=== PATIENT | female | born 1970 | race Caucasian/White ===

== ENCOUNTER → 2023-06-22 06:33 | Day surgery (SDC) | payer BC, SELFPAY | LOC: GI 06:33 | PROVIDERS: ATTENDING PHYSICIAN Internal Medicine | DX: Z12.11 Encounter for screening for malignant neoplasm of colon (principal); D12.0 Benign neoplasm of cecum; D12.5 Benign neoplasm of sigmoid colon; K63.5 Polyp of colon; K56.2 Volvulus; Z86.010 Personal history of colon polyps | CPT/HCPCS: 45380; 88305 ==

== ENCOUNTER → 2024-01-03 12:44 | Outpatient (REF) | payer BC, SELFPAY | LOC: WDC 12:44 | PROVIDERS: ATTENDING PHYSICIAN Obstetrics & Gynecology; FAMILY PHYSICIAN Family Medicine | DX: Z12.31 Encounter for screening mammogram for malignant neoplasm of breast (principal) | CPT/HCPCS: 77063; 77067 ==

== ENCOUNTER → 2025-01-08 12:30 | Outpatient (REF) | payer BC, SELFPAY | LOC: WDC 12:30 | PROVIDERS: ATTENDING PHYSICIAN Obstetrics & Gynecology; FAMILY PHYSICIAN Family Medicine | DX: Z12.31 Encounter for screening mammogram for malignant neoplasm of breast (principal) | CPT/HCPCS: 77063; 77067 ==

== ENCOUNTER 2025-01-27 11:37 | Emergency (ER) | payer BC, SELFPAY ==
[2025-01-27] VITALS (7 sets, daily range): BP systolic 104–124; BP diastolic 69–89; BMI 26.4
--- NOTE | 2025-01-27 12:12 | EDRN ---
Pt had surgery (lower back, fusion in lumbar area) done by [facility] at [place] [facility] on Dec 11. Pt states she had a lot of pain initially then pain eased up. Pt states that pain came back (also newly radiating up her back) and she cannot get
comfortable w/ pain meds not working. Pt is on oxycodone 5 mg 1-2 talets prn, toradol 10 mg prn, gabapentin 300 mg bid, tizandine 2 mg Bid for her pain and started on medrol dose pack on Monday. Pt states she was advised to come to ER r/t to no pain
relief.
--- NOTE | 2025-01-27 12:28 | EDRN ---
Juan David Navarro NP in room w/ pt.
[2025-01-27] MEDS: DILAUDID 0.5 MG IV ×3 (13:09→20:14)
[2025-01-27] MEDS: NSS 1000 IV (13:09)
[2025-01-27 13:30] LABS: Hematocrit 37.0 % (37.0-47.0); Hemoglobin 12.6 g/dL (12.0-16.0); Mean Corp Hgb Conc. 34.1 g/dL (33.0-37.0); Mean Corpuscular Volume 84.3 fL (81.0-99.0); Nucleated Red Blood Cells % 0 %; Platelet Count 297 10^3/uL (130-400); Red Cell Dist. Width 12.6 % (11.5-14.5)
[2025-01-27 13:39] LABS: ALT (SGPT) 104 U/L (0-35); AST (SGOT) 62 U/L (14-36); Albumin 4.5 g/dl (3.5-5.0); Alkaline Phosphatase 61 U/L (38-126); Blood Urea Nitrogen 16 mg/dl (7-17); Calcium 9.5 mg/dl (8.4-10.2); Carbon Dioxide 29 mmol/L (22-30); Chloride 104 mmol/L (98-107); Estimated Creatinine Clearance 81 ml/min; Glucose 123 mg/dl (70-99); Potassium 4.9 mmol/L (3.5-5.1); Sodium 138 mmol/L (135-145); Total Protein 7.0 g/dl (6.3-8.2); eGFR > 60.00
[2025-01-27 13:45] LABS: D-Dimer 0.49 ug/mlFEU (0.00-0.50)
--- NOTE | 2025-01-27 13:58 | ED.GENMED ---
History of Present Illness
<Ishan Solomon MD - Last Filed: 01/28/25 19:16>
General
Chief Complaint: Back Pain
Source: patient
Time Seen by Provider: 01/27/25 12:18
Nursing documentation reviewed up to this point in time: agreed with
<MICHEL Sharp - Last Filed: 01/27/25 19:47>
General
Exam Limitations: none
History of Present Illness
History of Present Illness:
Patient is a 54-year-old female who presents to the ER for evaluation. Patient had a laminectomy/fusion December [address] Wright at [facility]. She was hospitalized and there orthopedic [facility] in [place]. She started physical therapy the end of
December and is currently in physical therapy. For the past week however she has had pain in the mid part of her back. It feels very achy but constantly there. She did speak with them and has had no relief with her present oxycodone and gabapentin
and tizanidine she spoke to the physician clinical lab assistant at [facility] orthopedics on Monday 3 days ago and was given a prescription for Toradol still without relief. She spoke to the on-call doctor on Monday and was given steroid prescription and still
continues to have she denies any fever or chills. Pain is not worse with movement or position change it is just there. At times she does feel like it wraps around her front she feels mildly short of breath.
Past History
<Ishan Solomon MD - Last Filed: 01/28/25 19:16>
Past History
ED Past Medical History: Other (Chronic UTIs, breast implant rupture in 2018 with bilateral breast implant replacement on 03/02/18)
ED Past Surgical History: Gynecological, Orthopedic and Other (Breast implants in 2000 with rupture of implant in 2018 and subsequent replacement of bilateral breast implants with silicone on 03/02/18)
Social History
Tobacco: Non-smoker
Alcohol: Occasional
Drug: None
Personal:
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
Family History
Family History: Other (n/c)
Phy Exam
<MICHEL Sharp - Last Filed: 01/27/25 19:47>
General Physical Exam
General Presentation: no apparent distress
General age: appears stated age
General Skin: warm and dry
General Mental: alert
General Hydration: appears well hydrated
Cardiovascular Exam
Cardiovascular Exam: regular rate/rhythm, no murmur and normal peripheral pulses
Pulmonary Exam
Pulmonary Exam: lungs clear and no respiratory distress
Gastrointestinal Exam
Gastrointestinal Exam: non tender and soft
Neurological Exam
Neurological Exam: alert
Musculoskeletal Exam
Musculoskeletal Exam: full ROM and other (Healing lower lumbar scars without any evidence infection; no upper tenderness normal inspection to back )
Skin Exam
Skin Exam: normal color and warm/dry
Psychiatric Exam
Psychiatric Exam: normal mood/affect
Course
<Ishan Solomon MD - Last Filed: 01/28/25 19:16>
Orders/Labs/Results
Orders:
Orders
01/27/25 12:40
IV Insert/Care/Rem.- Treatment PRN
0.9% Sodium Chloride 1000 ml [Nss] 1,000 ml IV BOLUS
HYDROmorphone [Dilaudid] 0.5 mg IV NOW STA
01/27/25 13:13
C-Reactive Protein Urgent
Comment: ADD ON
Complete Blood Count/With Diff Urgent
Comprehensive Metabolic Panel Urgent
DDimer [D-Dimer] Urgent
Erythrocyte Sed Rate Urgent
Comment: ADD ON
01/27/25 15:01
HYDROmorphone [Dilaudid] 0.5 mg IV NOW STA
01/27/25 15:20
Add On- LAB Urgent
Tests Added?: crp and sed rate
01/27/25 15:45
MR Lumbar W/o & With Contrast Urgent
Reason For Exam: increased pain s/p surgery
OK for patient to be off Cardiac Monitoring for MRI: Yes
Recent pill cam endoscopy?: No
Pacemaker/Defibrillator?: No
Brain Aneurysm Clips?: No
Have you ever worked with metal? grinding metal? welding?: No
Cochlear(ear) implants?: No
Does Pt have a Temp Sensing Cath?: No
Does the patient have IV access?: Yes
Does the patient have any stents?: No
MR Thoracic Spine W/o & With Urgent
Reason For Exam: increased pain s/p surg r/o abscess
OK for patient to be off Cardiac Monitoring for MRI: Yes
Recent pill cam endoscopy?: No
01/27/25 16:16
Lorazepam [Ativan] 1 mg IV NOW STA
01/27/25 16:28
Lorazepam [Ativan] 1 mg IV NOW STA
01/27/25 19:52
HYDROmorphone [Dilaudid] 0.5 mg IV NOW STA
Abnormal Lab Results
01/27/25
13:13
Absolute Lymphs (auto) 0.7 L 10^3/uL
(1.2-3.4)
Neutrophils % 88.1 H %
(42.2-75.2)
Lymphocytes % 10.2 L %
(20.5-51.1)
Monocytes % 1.3 L %
(1.7-9.3)
Glucose 123 H mg/dl
(70-99)
AST 62 H U/L
(14-36)
ALT 104 H U/L
(0-35)
01/27/25 13:13
01/27/25 13:13
Vital Signs
Initial and Last Documented VS:
Initial Vital Signs
Temp Pulse Resp BP Pulse Ox
98.4 F 76 18 104/79 100
01/27/25 11:41 01/27/25 11:41 01/27/25 11:41 01/27/25 11:41 01/27/25 11:41
Last Documented Vital Signs
Temp Pulse Resp BP Pulse Ox
98.4 F 86 16 112/73 96
01/27/25 11:41 01/27/25 18:10 01/27/25 18:10 01/27/25 18:10 01/27/25 18:10
<MICHEL Sharp - Last Filed: 01/27/25 19:47>
Orders/Labs/Results
Orders:
Orders
01/27/25 12:40
IV Insert/Care/Rem.- Treatment PRN
0.9% Sodium Chloride 1000 ml [Nss] 1,000 ml IV BOLUS
HYDROmorphone [Dilaudid] 0.5 mg IV NOW STA
01/27/25 13:13
C-Reactive Protein Urgent
Comment: ADD ON
Complete Blood Count/With Diff Urgent
Comprehensive Metabolic Panel Urgent
DDimer [D-Dimer] Urgent
Erythrocyte Sed Rate Urgent
Comment: ADD ON
01/27/25 15:01
HYDROmorphone [Dilaudid] 0.5 mg IV NOW STA
01/27/25 15:20
Add On- LAB Urgent
Tests Added?: crp and sed rate
01/27/25 15:45
MR Lumbar W/o & With Contrast Urgent
Reason For Exam: increased pain s/p surgery
OK for patient to be off Cardiac Monitoring for MRI: Yes
Recent pill cam endoscopy?: No
Pacemaker/Defibrillator?: No
Brain Aneurysm Clips?: No
Have you ever worked with metal? grinding metal? welding?: No
Cochlear(ear) implants?: No
Does Pt have a Temp Sensing Cath?: No
Does the patient have IV access?: Yes
Does the patient have any stents?: No
MR Thoracic Spine W/o & With Urgent
Reason For Exam: increased pain s/p surg r/o abscess
OK for patient to be off Cardiac Monitoring for MRI: Yes
Recent pill cam endoscopy?: No
01/27/25 16:16
Lorazepam [Ativan] 1 mg IV NOW STA
01/27/25 16:28
Lorazepam [Ativan] 1 mg IV NOW STA
01/27/25 19:52
HYDROmorphone [Dilaudid] 0.5 mg IV NOW STA
Abnormal Lab Results
01/27/25
13:13
Absolute Lymphs (auto) 0.7 L 10^3/uL
(1.2-3.4)
Neutrophils % 88.1 H %
(42.2-75.2)
Lymphocytes % 10.2 L %
(20.5-51.1)
Monocytes % 1.3 L %
(1.7-9.3)
Glucose 123 H mg/dl
(70-99)
AST 62 H U/L
(14-36)
ALT 104 H U/L
(0-35)
01/27/25 13:13
01/27/25 13:13
Vital Signs
Initial and Last Documented VS:
Initial Vital Signs
Temp Pulse Resp BP Pulse Ox
98.4 F 76 18 104/79 100
01/27/25 11:41 01/27/25 11:41 01/27/25 11:41 01/27/25 11:41 01/27/25 11:41
Last Documented Vital Signs
Temp Pulse Resp BP Pulse Ox
98.4 F 86 16 112/73 96
01/27/25 11:41 01/27/25 18:10 01/27/25 18:10 01/27/25 18:10 01/27/25 18:10
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
Stone Mill Operator consulted with physician?: Yes
Name of Physician Consulted: Juanito
<MICHEL Sharp - Last Filed: 01/27/25 19:47>
MDM/Problems Addressed
Differential Diagnosis Includes:
Not limited to postsurgical pain less likely PE ,less likely abscess
MDM/Problems Addressed:
As documented patient is a 54-year-old female who presents to the ER for evaluation of back pain. She had laminectomy in the lumbar region by [facility] Dr. Colton Wright as documented in December. Recently she has had increasing pain and has
been very close contact with them. She is on pain medication including steroids without relief. Today however she presented for pain mostly in the thoracic region questional slight shortness of breath. Because of recent surgery PE workup was done
and negative D-dimer patient is not tachycardic not hypoxic in no acute distress with no shortness of breath. With negative D-dimer and persistent pain MRI of lumbar and thoracic region was done. Lumbar MRI reviewed shows a 2.6 cm rim-enhancing
fluid collection at the site of the left for hemilaminectomy diagnostic possibilities are postoperative seroma or abscess. Patient however with no fever normal white count normal sed rate normal CRP not consistent with abscess.
Called placed to DR Colton Wright ([facility] spine surgeon. I did review findings on CAT scan as well as labs. He is comfortable with following this patient as an outpatient and feels that these findings are likely consistent postsurgical findings
including likely seroma.
In addition patient's LFTs are very minimally elevated I did review with patient importance of close outpatient follow-up for recheck. She has no complaints abdominal pain/nausea abdomen soft nontender.
<Ishan Solomon MD - Last Filed: 01/28/25 19:16>
*Pulse Oximetry
SaO2: 100
Oxygen Mode of Delivery: Room air
<MICHEL Sharp - Last Filed: 01/27/25 19:47>
*Radiology
Radiology exam reviewed: radiology read reviewed
*Pulse Oximetry
Patient hypoxic: no
*Critical Care Note
Total Time (30-74mins, 75-104mins- exclusive of procedures): Not Applicable
Data Reviewed
Review of Other/Old Records Reveals: Radiology Studies
Source: patient
<MICHEL Sharp - Last Filed: 01/27/25 19:47>
Patient Management
Discussion with other providers: Dependency Program Director (orthopedic Dr Colton Wright )
ED Attending Note
<Ishan Solomon MD - Last Filed: 01/28/25 19:16>
ED Attending Note
Patient seen and examined by attending physician: Yes
ED Attending Note:
Patient status post lower back surgery at [facility] last month secondary to lumbar stenosis, not responding to outpatient treatment, presents to ED secondary to persistent mid back pain over the past 5 days. Patient denies fever or chills.
Denies new trauma. Denies open wound. Denies nausea or vomiting. Denies loss of sensation or weakness. Patient has spoken with her surgeon, who prescribed Toradol 3 days ago, and prednisone last night, without improvement symptoms. Denies
previous history of similar symptoms. Denies shortness of breath. Denies back pain. Denies abdominal pain. Denies loss of appetite.
Physical Exam
General: mild painful distress, not acutely ill. afebrile
Head: nc/at. eomi
Neck: supple. no meningeal signs.
Heart: s1/s2 regular rate and rhythm
Lungs: no acute respiratory distress. clear bilaterally. chest wall nontender to palpation
Abdomen: normal bowel sounds. not tender.
Back: no midline tenderness. no erythema/swelling. well healed surgical scar noted over lower back at level of L5-S1
Neuro: alert and oriented x 3. no focal neurological deficits
Skin: no rash
Psychiatric: well kept. interactive and cooperative
Extremities: no edema. no calf tenderness.
Patient with nonspecific mid/lower back pain, without clear etiology. In light of recent surgery, will check D-dimer. If negative, will speak to radiologist about obtaining MRI spine to evaluate for potential epidural hemorrhage versus abscess
-
Portions of this chart may have been created with voice recognition software.� Occasional wrong word or��sound alike� substitutions may have occurred due to the inherent limitations of voice recognition software.
Discharge Plan
Departure
Patient Disposition: Home (Routine Discharge)
Date of Disposition: 01/27/25
Time of Disposition: 19:41
Patient with high blood pressure during this ER visit?: No
Condition: Fair
Covid-19: Not Applicable
Discharge Problem:
Back pain
Instructions: Low Back Pain (DC), Upper Back Pain (DC)
Prescriptions:
No Action
sulfamethoxazole-trimethoprim 1 TABLET tablet
1 tab PO BID
escitalopram oxalate 20 MG tablet
20 mg PO DAILY
ondansetron 4 MG tablet,disintegrating
4 mg PO TIDPRN PRN (Reason: nausea/vomiting) Qty: 7 0RF
phenazopyridine 200 MG tablet
200 mg PO TID Qty: 11 0RF
Referrals:
Colton Wright MD [Active, Orthopedics]
Anabella Ramos MD [Family Provider, Family Practice]
Activity Restrictions/Additional Instructions:
Follow-up with your orthopedic surgeon next several l days; call the office tomorrow. Continue to take your pain medication as previously recommended and return if any worsening of symptoms.
Your liver functions were minimally elevated please follow-up with your family doctor for reevaluation of this.
Interventions
Interventions:
*Risk Screen - Suicide Last Done: 01/27/25 12:09
*General Assessment Last Done: 01/27/25 12:09
*Neglect/Abuse Screening Last Done: 01/27/25 12:09
*ED- Fall Risk Assessment Last Done: 01/27/25 12:09
*ED COVID-19 Vaccine History Last Done: 01/27/25 12:09
*ED Influenza Vaccine History Last Done: 01/27/25 12:09
*Nursing Disposition Last Done: 01/27/25 20:21
ED-Musculoskeletal Assessment Last Done: 01/27/25 12:09
Discharge Date and Time
Discharge Date/Time: 01/27/25 20:23
Print Language: BELIZEAN
--- NOTE | 2025-01-27 14:16 | EDRN ---
Juan David Mead NP in room w/ pt at this time.
--- NOTE | 2025-01-27 14:59 | EDRN ---
Pt given another cup of water and states pain is increasing, now 08/13. TT sent to inform Juan David Navarro NP at this time.
[2025-01-27 16:04] LABS: C-Reactive Protein < 5.00 mg/L (0.0-10.00)
[2025-01-27] MEDS: ATIVAN 1 MG IV ×2 (16:20→16:45)
--- NOTE | 2025-01-27 16:45 | EDRN ---
Pt unable to tolerate MRI. MRI called and this RN to MRI to administer a second dose of ativan to pt.
== END 2025-01-27 20:23 | disposition home or self-care (01) ==
LOC: EMR 11:37
PROVIDERS: Nurse Practitioner; EMERGENCY PHYSICIAN Emergency Medicine; FAMILY PHYSICIAN Family Medicine
DX: M54.89 Other dorsalgia (principal); Z98.1 Arthrodesis status; Z98.82 Breast implant status
CPT/HCPCS: 96374; 96375; 96376; 96361; 99284; 72157; 72158; 80053; 85025; 85379; 85652; 86140; A9575